=== PATIENT | male | born 1980 | race Hispanic/Latino ===

== ENCOUNTER 2021-04-13 14:55 | Emergency (ER) | payer OTHER ==
[~2021-04-13] VITALS: Ht 182.9 cm; Wt 106.6 kg
[2021-04-13 14:57] VITALS: BP 126/81
[2021-04-13] MEDS ORDERED: KETOROLAC 60 MG VIAL (30MG/ML) IM ONE (15:30)
[2021-04-13] MEDS ORDERED: KETOROLAC 60 MG VIAL (30MG/ML) ONE (16:06)
[2021-04-13 16:12] VITALS: BP 128/76
[2021-04-13] MEDS ORDERED: NAPR-1180 PO (16:15)
== END 2021-04-13 16:38 | disposition home or self-care (01) ==
LOC: EDH 14:55
DX: S83.92XA Sprain of unspecified site of left knee, initial encounter (principal); E78.00 Pure hypercholesterolemia, unspecified; Z79.1 Long term (current) use of non-steroidal anti-inflammatories (NSAID); X58.XXXA Exposure to other specified factors, initial encounter; Y93.89 Activity, other specified; Y92.89 Other specified places as the place of occurrence of the external cause; Y99.8 Other external cause status
CPT/HCPCS: 29505; 73562; 96372; 99283; J1885